=== PATIENT | male | born 1975 ===

== ENCOUNTER 2017-11-26 18:33 | Emergency (ER) | payer SELFPAY ==
[2017-11-26] MEDS ORDERED: Amoxicillin-Clav 875-125 mg Tab PO STA (19:30)
[2017-11-26 19:53] VITALS: BP 113/73; PULSE 73; RESP 15; TEMP 98.1; O2SAT 98
[2017-11-26] MEDS ORDERED: Amoxicillin-Clav 875-125 mg Tab PO ONE (19:54)
--- NOTE | 2017-11-26 20:04 | C.PDOC ---
History Of Present Illness 42 year old male presents to the ER with a complaint of left ear pain, left facial pain, and headache for the past few days after going swimming, associated with a rash to the bilateral thighs. Patient has been applying ear drops and powder to the thighs with no relief. Denies fever, chills, nausea, or vomiting. Time Seen by Provider: 11/26/17 19:14 Chief Complaint (Nursing): Abnormal Skin Integrity History Per: Patient History/Exam Limitations: no limitations Onset/Duration Of Symptoms: Days Current Symptoms Are (Timing): Still Present Location Of Injury: Right: Thigh, Left: Face, Thigh Recent travel outside of the [place]: No Past Medical History Reviewed: Historical Data, Nursing Documentation, Vital Signs Vital Signs: Last Vital Signs Temp 98.1 F 11/26/17 19:53 Pulse 73 11/26/17 19:53 Resp 15 11/26/17 19:53 BP 113/73 11/26/17 19:53 Pulse Ox 98 11/26/17 20:15 - Medical History PMH: HTN, Hypercholesterolemia Family History: States: Unknown Family Hx - Social History Hx Alcohol Use: No Hx Substance Use: No - Immunization History Hx Tetanus Toxoid Vaccination: Yes Hx Influenza Vaccination: Yes Hx Pneumococcal Vaccination: No Review Of Systems Constitutional: Negative for: Fever, Chills ENT: Positive for: Ear Pain. Negative for: Throat Pain Respiratory: Negative for: Cough Gastrointestinal: Negative for: Nausea, Vomiting Skin: Positive for: Rash Physical Exam - Physical Exam Appears: Non-toxic Skin: Warm, Dry, Rash (Scaly purpuric with excoriations. No evidence of cellulitis.) Head: Atraumatic, Normacephalic Eye(s): bilateral: Normal Inspection Ear(s): Left: Other (External canal edematous with purulent material and pain with pulling on the pinna. ), Right: Normal Nose: Normal Oral Mucosa: Moist Throat: Normal, No Erythema, No Exudate Neck: Normal, Supple Chest: Symmetrical, No Tenderness Cardiovascular: Rhythm Regular Respiratory: Normal Breath Sounds, No Rales, No Rhonchi, No Wheezing Gastrointestinal/Abdominal: Soft, No Tenderness Extremity: Normal ROM, No Swelling Neurological/Psych: Oriented x3, Normal Speech, Normal Motor, Normal Sensation Gait: Steady ED Course And Treatment O2 Sat by Pulse Oximetry: 98 (Room air) Pulse Ox Interpretation: Normal Medical Decision Making Medical Decision Making: Motrin administered with relief, patient started on augmentin in the ER, will discharge home with Rx and instructions to follow up with PMD for further evaluation. Disposition - Disposition Referrals: Isael Bah MD [Staff Provider] - Disposition: HOME/ ROUTINE Disposition Time: 19:30 Condition: GOOD Additional Instructions: Follow up with the ENT within 1-2 days. Return if worsened. Prescriptions: Amoxicillin/Clavulanate [Augmentin 875 MG-125 MG] 1 tab PO BID #14 tab Ketoconazole 2% Cr [Nizoral] 60 gm EXT BID #3 tube Neomycin/Polymyxin/Hydrocortis [Cortisporin Otic Susp] 3 drop TOP TID #1 bottle Instructions: Outer Ear Infection (DC) Forms: [employer] (Japanese) - Clinical Impression Clinical Impression: Otitis externa, Jock itch - PA / MANUAL ARTS TEACHER / Resident Statement MD/DO has reviewed & agrees with the documentation as recorded. - Scribe Statement The provider has reviewed the documentation as recorded by the Scribjerman Reynoso All medical record entries made by the Maiibjerman were at my direction and personally dictated by me. I have reviewed the chart and agree that the record accurately reflects my personal performance of the history, physical exam, medical decision making, and the department course for this patient. I have also personally directed, reviewed, and agree with the discharge instructions and disposition.
== END 2017-11-26 20:20 | disposition home or self-care (01) ==
LOC: C.ER 18:33
DX: H60.92 Unspecified otitis externa, left ear (principal); B35.6 Tinea cruris

== ENCOUNTER 2018-04-06 00:04 | Emergency (ER) | payer OTHER ==
[2018-04-06 00:32] VITALS: RESP 20; O2SAT 97
--- NOTE | 2018-04-06 02:01 | C.PDOC ---
History Of Present Illness 42 year old male presents to the ED c/o cough, sore throat, bilateral earache, fever and chills since Wednesday. 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 Patient is s/o septoplasty done 3 days ago. Patient denies headache, CP, SOB, nausea, vomit, diarrhea, rash, back pain, injury, fall, trauma. Time Seen by Provider: 04/06/18 00:55 Chief Complaint (Nursing): Cough, Cold, Congestion History Per: Patient History/Exam Limitations: no limitations Onset/Duration Of Symptoms: Days (4) Current Symptoms Are (Timing): Still Present Location Of Pain: Throat, Sinus/es Associated Symptoms: Fever, Cough, Sinus Drainage, Nasal Congestion Ear Symptoms: Bilateral: None Recent travel outside of the [place]: No Additional History Per: Patient Past Medical History Reviewed: Historical Data, Nursing Documentation, Vital Signs Vital Signs: Last Vital Signs Temp 98.6 F 04/06/18 00:21 Pulse 88 04/06/18 00:21 Resp 20 04/06/18 00:21 BP 133/76 04/06/18 00:21 Pulse Ox 97 04/06/18 00:21 - Medical History PMH: HTN, Hypercholesterolemia Surgical History: No Surg Hx Family History: States: Unknown Family Hx - Social History Hx Alcohol Use: No Hx Substance Use: No - Immunization History Hx Tetanus Toxoid Vaccination: Yes Hx Influenza Vaccination: Yes Hx Pneumococcal Vaccination: No Review Of Systems Constitutional: Positive for: Fever. Negative for: Chills ENT: Positive for: Ear Pain, Nose Discharge, Nose Congestion, Throat Pain Respiratory: Positive for: Cough. Negative for: Shortness of Breath, Sputum, Wheezing Gastrointestinal: Negative for: Nausea, Vomiting, Abdominal Pain Skin: Negative for: Rash Neurological: Negative for: Weakness, Numbness, Headache Physical Exam - Physical Exam Appears: Non-toxic, No Acute Distress Skin: Normal Color, Warm, Dry Head: Atraumatic, Normacephalic Eye(s): bilateral: Normal Inspection Ear(s): Bilateral: Normal Nose: No Epistaxis, No Other (no nasal erythema, nasal mucosa normal ) Oral Mucosa: Moist Throat: Normal, No Erythema, No Exudate Neck: Normal ROM, Supple Chest: Symmetrical Cardiovascular: Rhythm Regular Respiratory: Normal Breath Sounds, No Rales, No Rhonchi, No Wheezing Extremity: Normal ROM, No Tenderness, No Swelling Neurological/Psych: Oriented x3, Normal Speech, Normal Cognition Gait: Steady ED Course And Treatment O2 Sat by Pulse Oximetry: 97 (ON RA) Pulse Ox Interpretation: Normal - Radiology CXR: Interpreted by Me CXR Interpretation: Yes: No Acute Disease Progress Note: Plan: - CXR. - Influenza A B. On reassessment, patient is resting comfortably, and is in no acute distress. Patient was instructed to follow up with physician/clinic in 1-2 days for further evaluation. Disposition Counseled Patient/Family Regarding: Diagnosis, Need For Followup, Rx Given - Disposition Referrals: Your PMD, Office [Other] Disposition: HOME/ ROUTINE Disposition Time: 02:00 Condition: STABLE Additional Instructions: Take all medications as prescribed Continue tylenol for fever or psin Continue Allergy medicine Return to ER if worse Prescriptions: Amoxicillin/Clavulanate [Augmentin 500 MG-125 MG] 1 tab PO TID #21 tab Polyethylene Glycol 3350 [Miralax] 17 gm PO DAILY #1 bottle Instructions: Sinusitis, Adult (DC) Forms: [employer] (Georgian) Print Language: UZBEK - Clinical Impression Clinical Impression: Sinusitis, Upper respiratory infection - PA / LIQUOR TESTER / Resident Statement MD/DO has reviewed & agrees with the documentation as recorded. - Scribe Statement The provider has reviewed the documentation as recorded by the Scribe Casimiro Balderas All medical record entries made by the Maiibjerman were at my direction and personally dictated by me. I have reviewed the chart and agree that the record accurately reflects my personal performance of the history, physical exam, medical decision making, and the department course for this patient. I have also personally directed, reviewed, and agree with the discharge instructions and disposition.
[2018-04-06 02:20] VITALS: BP 112/74; PULSE 80; TEMP 98.2
--- NOTE | 2018-04-06 10:30 | RAD ---
Date of service: 04/06/2018 HISTORY: cough, fever COMPARISON: No prior. TECHNIQUE: Chest PA and lateral FINDINGS: LUNGS: No active pulmonary disease. There are at least 2 tiny densities seen right upper and right upper/mid lung field that may represent vessel on end artifact however tiny granulomas or tiny parenchymal nodules not excluded PLEURA: No significant pleural effusion identified. No pneumothorax apparent. CARDIOVASCULAR: No aortic atherosclerotic calcification present. Normal cardiac size. No pulmonary vascular congestion. OSSEOUS STRUCTURES: Mild multilevel degenerative spondylosis of thoracic spine. VISUALIZED UPPER ABDOMEN: Normal. OTHER FINDINGS: None. IMPRESSION: No acute infiltrates.. There are at least 2 tiny nodular densities right upper/mid lung field that probably represent vessel on end artifact however possibility of small granulomas or parenchymal nodule not completely excluded. Follow-up chest radiograph in 2 months could be to assess stability. Note this report was placed in PA review folder for follow up.
== END 2018-04-06 02:21 | disposition home or self-care (01) ==
LOC: C.ER 00:04
DX: J06.9 Acute upper respiratory infection, unspecified (principal); J32.9 Chronic sinusitis, unspecified; I10 Essential (primary) hypertension; E78.00 Pure hypercholesterolemia, unspecified

== ENCOUNTER 2018-05-08 12:36 | Emergency (ER) | payer OTHER ==
[2018-05-08 12:48] VITALS: RESP 18; O2SAT 98
[2018-05-08] MEDS ORDERED: Sodium Chloride 0.9% 1,000 ML IV STA (13:47)
[2018-05-08] MEDS ORDERED: Sodium Chloride 0.9% 1,000 ML ONE (13:57)
--- NOTE | 2018-05-08 13:57 | C.PDOC ---
History Of Present Illness 42 y/o M c PMHx HLD, nephrotic syndrome p/w R flank pain x 1 day. Reports as radiating from R flank to R lower abdomen associated with nausea and NBNB vomiting. Denies fever, chills, chest pain, dyspnea, dysuria, rash. Time Seen by Provider: 05/08/18 13:21 Chief Complaint (Nursing): Male Genitourinary Past Medical History Vital Signs: Last Vital Signs Temp 98.1 F 05/08/18 12:44 Pulse 64 05/08/18 12:44 Resp 18 05/08/18 12:44 BP 133/87 05/08/18 12:44 Pulse Ox 98 05/08/18 12:44 - Medical History PMH: HTN, Hypercholesterolemia Family History: States: Unknown Family Hx - Social History Hx Alcohol Use: No Hx Substance Use: No - Immunization History Hx Tetanus Toxoid Vaccination: Yes Hx Influenza Vaccination: Yes Hx Pneumococcal Vaccination: No Review Of Systems Except As Marked, All Systems Reviewed And Found Negative. Constitutional: Negative for: Fever Cardiovascular: Negative for: Chest Pain Physical Exam - Physical Exam Additional Physical Exam Comments: Constitutional: No acute distress. Head: Normocephalic. Atraumatic. Eyes: PERRL. ENT: Moist mucous membranes. Neck: Supple. Cardiovascular: Regular rate. Radial pulse 2+ bilaterally. Chest: No tenderness. Respiratory: Clear to auscultation bilaterally. GI: Soft. Nontender. Nondistended. Back: R CVA tenderness. Musculoskeletal: No tenderness or swelling of extremities. Skin: No rash. Neurologic: Alert, no focal deficit. ED Course And Treatment - Laboratory Results Result Diagrams: 05/08/18 14:23 05/08/18 14:23 O2 Sat by Pulse Oximetry: 98 Medical Decision Making Medical Decision Making: Date of service: 05/08/2018 PROCEDURE: CT Abdomen and Pelvis without intravenous contrast HISTORY: R flank pain COMPARISON: None. TECHNIQUE: Helical CT of the abdomen and pelvis was performed without oral or intravenous contrast as per referring physician request. Coronal and sagittal reformats were generated.. Radiation dose: Total exam DLP = 872.01 mGy-cm. This CT exam was performed using one or more of the following dose reduction techniques: Automated exposure control, adjustment of the mA and/or kV according to patient size, and/or use of iterative reconstruction technique. FINDINGS: LOWER THORAX: No infiltrate identified bilaterally or pleural effusion. Subsegmental X identified at the dependent portions minimally. Small hiatal hernia identified. Thickening of the distal esophagus not excluded. LIVER: Unremarkable. No gross lesion or ductal dilatation. GALLBLADDER AND BILE DUCTS: Unremarkable. PANCREAS: Unremarkable. No gross lesion or ductal dilatation. SPLEEN: Unremarkable. ADRENALS: Unremarkable. No mass. KIDNEYS AND URETERS: No obstructive uropathy identified bilaterally. Prominent parapelvic cysts identified at the mid to lower pole left kidney and there what appear to be collateral veins related to the medial left perirenal space of uncertain origin. No gross mass identified. Lack of intravenous contrast limits evaluation of renal parenchyma as well as remaining additional solid abdominal organs as well. No radiodense urolithiasis bilaterally. No perinephric reaction bilaterally. VASCULATURE: Unremarkable. No aortic aneurysm. No aortic atherosclerotic calcification or mural plaque present. BOWEL: Unremarkable. No obstruction. No gross mural thickening. APPENDIX: Unremarkable. Normal appendix. PERITONEUM: Unremarkable. No free fluid. No free air. LYMPH NODES: Unremarkable. No enlarged lymph nodes. BLADDER: Unremarkable. REPRODUCTIVE: Unremarkable. BONES: Limited anterior wedge compression fracture of T11 and possibly T12 of indetermi nidia age. OTHER FINDINGS: None. IMPRESSION: 1. No obstructive uropathy or radiodense urolithiasis bilaterally. No perinephric reaction bilaterally either. Mid lower pole parapelvic cysts are identified. Probable limited collateral veins or varices are seen related to the medial left perirenal space of uncertain origin. 2. No CT evidence of appendicitis. Unremarkable gallbladder. Patient states he feels better. Call placed to patient's chemistry professor Dr. Gooden. Discharged home, f/u nephrology, return to ED for worsening pain, vomiting, or any other problem. Disposition - Disposition Disposition: HOME/ ROUTINE Disposition Time: 16:28 Condition: STABLE Prescriptions: Ibuprofen [Motrin] 600 mg PO Q6 #25 tab Ondansetron ODT [Zofran ODT] 4 mg PO Q8 #12 odt Instructions: Flank Pain Forms: [employer] (Arabic) - Clinical Impression Clinical Impression: Flank pain
--- NOTE | 2018-05-08 14:29 | CT ---
Date of service: 05/08/2018 PROCEDURE: CT Abdomen and Pelvis without intravenous contrast HISTORY: R flank pain COMPARISON: None. TECHNIQUE: Helical CT of the abdomen and pelvis was performed without oral or intravenous contrast as per referring physician request. Coronal and sagittal reformats were generated.. Radiation dose: Total exam DLP = 872.01 mGy-cm. This CT exam was performed using one or more of the following dose reduction techniques: Automated exposure control, adjustment of the mA and/or kV according to patient size, and/or use of iterative reconstruction technique. FINDINGS: LOWER THORAX: No infiltrate identified bilaterally or pleural effusion. Subsegmental X identified at the dependent portions minimally. Small hiatal hernia identified. Thickening of the distal esophagus not excluded. LIVER: Unremarkable. No gross lesion or ductal dilatation. GALLBLADDER AND BILE DUCTS: Unremarkable. PANCREAS: Unremarkable. No gross lesion or ductal dilatation. SPLEEN: Unremarkable. ADRENALS: Unremarkable. No mass. KIDNEYS AND URETERS: No obstructive uropathy identified bilaterally. Prominent parapelvic cysts identified at the mid to lower pole left kidney and there what appear to be collateral veins related to the medial left perirenal space of uncertain origin. No gross mass identified. Lack of intravenous contrast limits evaluation of renal parenchyma as well as remaining additional solid abdominal organs as well. No radiodense urolithiasis bilaterally. No perinephric reaction bilaterally. VASCULATURE: Unremarkable. No aortic aneurysm. No aortic atherosclerotic calcification or mural plaque present. BOWEL: Unremarkable. No obstruction. No gross mural thickening. APPENDIX: Unremarkable. Normal appendix. PERITONEUM: Unremarkable. No free fluid. No free air. LYMPH NODES: Unremarkable. No enlarged lymph nodes. BLADDER: Unremarkable. REPRODUCTIVE: Unremarkable. BONES: Limited anterior wedge compression fracture of T11 and possibly T12 of indeterminate age. OTHER FINDINGS: None. IMPRESSION: 1. No obstructive uropathy or radiodense urolithiasis bilaterally. No perinephric reaction bilaterally either. Mid lower pole parapelvic cysts are identified. Probable limited collateral veins or varices are seen related to the medial left perirenal space of uncertain origin. 2. No CT evidence of appendicitis. Unremarkable gallbladder.
[2018-05-08 14:30] LABS: BASO % 0.3 % (0.0-2.0); EOS % 0.1 % (0.0-4.0); LYMPH % 7.7 % (20.0-40.0); MEAN CORPUSCULAR HEMOGLOBIN 31.3 pg (27.0-31.0); MEAN CORPUSCULAR HGB CONC 34.4 g/dL (33.0-37.0); MEAN PLATELET VOLUME 8.3 fL (7.2-11.7); MONO # 0.4 K/uL (0.0-0.8); MONO % 3.3 % (0.0-10.0); NEUT # 11.3 K/uL (1.8-7.0); NEUT % 88.6 % (50.0-75.0); PLATELET COUNT 211 K/uL (130-400); RBC 5.11 Mil/uL (4.40-5.90); RED CELL DISTRIBUTION WIDTH 13.7 % (11.5-14.5)
[2018-05-08 14:32] LABS: WHITE BLOOD COUNT 12.7 K/uL (4.8-10.8)
[2018-05-08 14:39] LABS: SQUAMOUS EPITHIAL < 1 /hpf (0-5); URINE BACTERIA RARE (<OCC); URINE BILIRUBIN NEGATIVE (NEGATIVE); URINE BLOOD 1+ (NEGATIVE); URINE CLARITY Hazy (Clear); URINE COLOR Yellow (YELLOW); URINE GLUCOSE (UA) NORMAL (Normal); URINE LEUKOCYTE ESTERASE NEG Leu/uL (Negative); URINE PROTEIN 3+ mg/dL (NEGATIVE); URINE UROBILINOGEN NORMAL mg/dL (0.2-1.0)
[2018-05-08 14:47] LABS: ALB/GLOB RATIO 1.4 (1.0-2.1); ALBUMIN 4.5 g/dL (3.5-5.0); ALT/SGPT 42 U/L (21-72); AST/SGOT 37 U/L (17-59); BLOOD UREA NITROGEN 15 mg/dL (9-20); CALCIUM 9.6 mg/dl (8.6-10.4); GFR NON-AFRICAN AMERICAN > 60
[2018-05-08 15:21] LABS: BANDS 4 % (0-2); LYMPHOCYTE 8 % (20-40); MONOCYTE 2 % (0-10); NEUTROPHIL 86 % (50-75); PLATELET ESTIMATE NORMAL (NORMAL); TOTAL CELLS COUNTED 100
[2018-05-08 15:22] VITALS: BP 128/78; PULSE 83; TEMP 98.5
[2018-05-08 15:22] LABS: ANISOCYTOSIS SLIGHT; LARGE PLATELETS PRESENT; PLATELET CLUMPS PRESENT; TOXIC GRANULATION PRESENT
== END 2018-05-08 16:54 | disposition home or self-care (01) ==
LOC: C.ER 12:36
DX: R10.9 Unspecified abdominal pain (principal); E78.00 Pure hypercholesterolemia, unspecified; I10 Essential (primary) hypertension
CPT/HCPCS: 74176; 80053; 81001; 85025; 87086; 96361; 96374; 96375; 99284; J1885; J2405; J7030